=== PATIENT | male | born 1960 | race Hispanic/Latino ===

== ENCOUNTER 2016-12-11 16:13 | Outpatient (CLI) | payer OTHER ==
--- NOTE | 2016-12-11 18:55 | RAD ---
PA AND LATERAL CHEST: Date: 12-11-16 History: Right sided chest pain for two months. Patient states twisted wrong 10-27-16. Comparison: 11-24-11 FINDINGS: Cardiac silhouette and pulmonary vasculature are within normal limits. The lungs remain clear. There is no pneumothorax or pleural effusion. Osseous structures appear intact. No obvious fracture is se en. Vascular calcifications are seen in a tortuous thoracic aorta. Mild degenerative changes are not ed in the spine. IMPRESSION: No acute cardiopulmonary process. POS: BECKI
== END 2016-12-11 16:14 | disposition home or self-care (01) ==
LOC: MADRAD 16:13
PROVIDERS: ATTEND Family Medicine
DX: R79.89 Other specified abnormal findings of blood chemistry (principal); E78.5 Hyperlipidemia, unspecified; I10 Essential (primary) hypertension; R10.9 Unspecified abdominal pain
CPT/HCPCS: 71020

== ENCOUNTER 2017-01-27 06:05 | Emergency (ER) | payer OTHER ==
[2017-01-27] MEDS ORDERED: Lidocaine 1% w/Epinephrine 1:100K 20 ML VIAL ONE (06:38)
[2017-01-27] MEDS ORDERED: Ketorolac Tromethamine 60 MG/2 ML VIAL ONE (06:59)
[2017-01-27] MEDS ORDERED: AMOXicillin 250 MG CAP ONE (06:59)
== END 2017-01-27 07:05 | disposition home or self-care (01) ==
LOC: MADERS 06:05
DX: K04.7 Periapical abscess without sinus (principal); K03.81 Cracked tooth; F17.210 Nicotine dependence, cigarettes, uncomplicated; R03.0 Elevated blood-pressure reading, without diagnosis of hypertension
CPT/HCPCS: 41800; 96372; J1885; J2001

== ENCOUNTER 2017-02-26 15:04 | Outpatient (CLI) | payer OTHER ==
--- NOTE | 2017-02-26 15:26 | RAD ---
TWO VIEWS RIGHT HIP: Comparison: None. History: Right hip injury last Sabina with right hip pain. FINDINGS: Two views of the right hip shows no evidence of acute fracture or dislocation. No degenerative change s are seen. No soft tissue swelling is present. IMPRESSION: No significant right hip abnormality. POS: JENNIFER
== END 2017-02-26 15:05 | disposition home or self-care (01) ==
LOC: MADRAD 15:04
PROVIDERS: ATTEND Family Medicine
DX: M25.551 Pain in right hip (principal)

== ENCOUNTER 2018-06-28 11:01 | Emergency (ER) | payer OTHER ==
[~2018-06-28 11:01] MED LIST: Sodium Chloride Irrig Solution 250 ML BOT ONE; Sterile Water Irrigation 250 ML BOT ONE
[2018-06-28] MEDS ORDERED: Sulfameth/Trimethoprim DS 800-160mg TAB ONE (11:40)
[2018-06-28] MEDS ORDERED: Lidocaine 1% w/Epinephrine 1:100K 20 ML VIAL ONE (11:40)
[2018-06-28] MEDS ORDERED: Triple Antibiotic Oint 1 GM Packet ONE (12:17)
== END 2018-06-28 12:28 | disposition home or self-care (01) ==
LOC: MADERS 11:01
DX: S61.411A Laceration without foreign body of right hand, initial encounter (principal); F17.210 Nicotine dependence, cigarettes, uncomplicated; W26.8XXA Contact with other sharp object(s), not elsewhere classified, initial encounter; Y92.69 Other specified industrial and construction area as the place of occurrence of the external cause
CPT/HCPCS: 12002; J2001

== ENCOUNTER 2018-07-08 14:15 | Emergency (ER) | payer OTHER ==
[2018-07-08] MEDS ORDERED: Bacitracin Zinc 1 Packet ONE (14:34)
[2018-07-08] MEDS ORDERED: Lidocaine 1% 20 ML MDV ONE (14:34)
== END 2018-07-08 15:20 | disposition home or self-care (01) ==
LOC: MADERS 14:15
DX: S61.219A Laceration without foreign body of unspecified finger without damage to nail, initial encounter (principal); W45.8XXA Other foreign body or object entering through skin, initial encounter
CPT/HCPCS: 12001; J2001

== ENCOUNTER 2020-10-12 08:12 | Emergency (ER) | payer OTHER ==
[2020-10-12] MEDS ORDERED: Lidocaine 1% w/Epinephrine 1:100K 20 ML VIAL ONE (08:58)
== END 2020-10-12 09:35 | disposition home or self-care (01) ==
LOC: MADERS 08:12
DX: L02.212 Cutaneous abscess of back [any part, except buttock and flank] (principal); F17.210 Nicotine dependence, cigarettes, uncomplicated
CPT/HCPCS: 10060